=== PATIENT | female | born 1960 | race African-American/Black ===

== ENCOUNTER 2022-11-24 20:01 | Emergency (ER) | payer OTHER ==
[2022-11-24 20:11] VITALS: BP 155/85; PULSE 84; RESP 18; TEMP 97.8; BMI 27.5
== END 2022-11-24 22:01 | disposition home or self-care (01) ==
LOC: FER 20:01
DX: S93.402A Sprain of unspecified ligament of left ankle, initial encounter (principal); W01.0XXA Fall on same level from slipping, tripping and stumbling without subsequent striking against object, initial encounter
CPT/HCPCS: 73610-TC-LT-FY; 99283-25

== ENCOUNTER 2025-03-30 06:46 | Day surgery (SDC) | payer OTHER ==
[2025-03-25 12:10] VITALS: BMI 27.5
[2025-03-30 10:46] VITALS: RESP 19; TEMP 97.7
[2025-03-30 10:48] VITALS: BP 100/57; PULSE 76
== END 2025-03-30 11:10 | disposition home or self-care (01) ==
LOC: FASU-ENDO 06:46
PROVIDERS: ATTEND Internal Medicine Gastroenterology
PROC: 0DBK8ZX Excision of Ascending Colon, Via Natural or Artificial Opening Endoscopic, Diagnostic (ICD-10-PCS; 2025-03-30)
PROC: 0DBL8ZX Excision of Transverse Colon, Via Natural or Artificial Opening Endoscopic, Diagnostic (ICD-10-PCS; 2025-03-30)
PROC: 0DBL8ZX Excision of Transverse Colon, Via Natural or Artificial Opening Endoscopic, Diagnostic (ICD-10-PCS; principal; 2025-03-30 09:46)
DX: D12.2 Benign neoplasm of ascending colon (principal); D12.3 Benign neoplasm of transverse colon; K57.30 Diverticulosis of large intestine without perforation or abscess without bleeding
CPT/HCPCS: 88305-TC